=== PATIENT | male | born 1940 | race Caucasian/White ===

== ENCOUNTER 2019-02-28 04:32 | Inpatient (IN) ==
[2019-02-28] MEDS ORDERED: HEPARIN DRIP 25,000 UNITS/500 ML PREMIX IV SCH ×2 (06:30→13:00)
[2019-02-28 07:02] LABS: ABG Base Excess 2.6 MMOL/L (-2.5-2.5); ABG HCO3 26.5 MMOL/L (20-26); ABG Oxygen Saturation 88.5 % (95-100); ABG PCO2 38.9 MM HG (35-48); ABG PH 7.444 (7.35-7.45); ABG PO2 51.3 MM HG (80-95); ABG TCO2 22.5 MMOL/L (23-27); Allen Test Positive
[2019-02-28 07:03] LABS: Basophils # 0.1 10*3/uL (0.0-0.2); Basophils % 0.6 % (0.0-0.8); Eosinophils # 0.2 10*3/uL (0.0-0.87); Eosinophils % 1.5 % (0.00-10.9); Hematocrit 45.4 VOL% (42.0-52.0); Hemoglobin 15.4 GM/DL (14.0-18.0); Immature Granulocytes % 0.7 %; Immature Granulocytes Absolute 0.07 #; Lymphocytes # 1.8 10*3/uL (1.4-4.0); Lymphocytes % 17.4 % (21.2-54.2); Mean Corpuscular HGB Conc 33.9 GM/DL (32-36); Mean Corpuscular Volume 85.5 FL (87-102); Mean Platelet Volume 10.7 FL (9.6-12.0); Neutrophils % 70.8 % (38.7-73.9); Platelet Count 164 T/CUMM (130-400); Red Blood Count 5.31 MC/CUMM (3.8-5.5); White Blood Count 10.3 T/CUMM (4-12)
[2019-02-28 07:09] LABS: INR 1.1; PT Patient Result 11.6 SECS (9.6-12.2)
[2019-02-28 07:16] LABS: Partial Thromboplastin Time 43.8 SECS (20.8-36.0)
[2019-02-28 07:22] LABS: Blood Urea Nitrogen 16 MG/DL (7-18); Estimated Glom Filtration Rate 47 ML/MIN; Glucose 118 MG/DL (74-106); Osmolality,Calculated 282.3 MOS/KG (273-304)
[2019-02-28 07:23] LABS: Troponin I 0.172 NG/ML (0.00-0.045)
[2019-02-28] MEDS ORDERED: ONDANSETRON 4 MG/2 ML VIAL IV PRN (08:53)
[2019-02-28] MEDS ORDERED: MORPHINE 4 MG/1 ML VIAL IV PRN (08:53)
[2019-02-28] MEDS ORDERED: PROMETHAZINE 25 MG/1 ML VIAL IM PRN (08:53)
[2019-02-28] MEDS: SODIUM CHLORIDE 0.9% 1,000 ML IV SCH (09:45)
[2019-02-28] MEDS: PANTOPRAZOLE 40 MG TABLET PO SCH (09:46)
[2019-02-28] MEDS ORDERED: DIAZEPAM 5 MG TABLET PO ONE (11:23)
[2019-02-28] MEDS: MECLIZINE 25 MG TABLET PO SCH ×2 (11:34→18:26)
[2019-02-28] MEDS ORDERED: MIDAZOLAM 2 MG/2 ML VIAL ONE (11:56)
[2019-02-28] MEDS ORDERED: HYDROmorphone 2 MG/1 ML VIAL ONE (11:56)
[2019-02-28] MEDS ORDERED: HEPARIN/NACL 0.9% 2 UNITS/ML 500 ML IV ONE (11:58)
[2019-02-28] MEDS ORDERED: LIDOCAINE 1% 20 ML VIAL ONE (11:58)
[2019-02-28] MEDS ORDERED: SODIUM CHLORIDE 0.9% 1,000 ML IV SCH ×2 (12:00)
[2019-02-28] MEDS ORDERED: ALTEPLASE 4 MG in SODIUM CHLORIDE 0.9% 80 ML IV SCH (12:00)
[2019-02-28 13:46] LABS: PT Patient Result 11.3 SECS (9.6-12.2); Partial Thromboplastin Time 34.4 SECS (20.8-36.0)
[2019-02-28] MEDS ORDERED: HALOPERIDOL 5 MG/ML AMP IV PRN (14:25)
[2019-02-28 15:23] LABS: Apearance,Urine CLEAR (Clear); Bilirubin,Urine Negative (Negative); Blood, Urine Moderate mg/dL (Negative); Glucose,Urine (UA) Negative (Negative); Ketones,Urine 5 mg/dL (Negative); Nitrite,Urine Negative (Negative); Protein,Urine 100 MG/DL; RBC,Urine 13 /HPF (0-4); Squamous Epithelial Cell,Urine Occasional /HPF (0-10); Urine Color Yellow (Yellow); Urine Specific Gravity 1.034 (1.001-1.035); WBC,Urine 2 /HPF (0-6)
[2019-02-28] MEDS ORDERED: ZIPRASIDONE 20 MG/1 ML VIAL IM PRN (16:20)
[2019-02-28 16:22] LABS: INR 1.1; PT Patient Result 11.6 SECS (9.6-12.2)
[2019-02-28] MEDS: APIXABAN 5 MG TABLET PO SCH (20:34)
[2019-02-28] MEDS: ROSUVASTATIN 20 MG TABLET PO SCH (20:34)
[2019-02-28] MEDS: traZODone 50 MG TABLET PO SCH (20:34)
[2019-02-28] MEDS: busPIRone 15 MG TABLET PO SCH (20:34)
[2019-02-28] MEDS: carvediloL 6.25 MG TABLET PO SCH (20:34)
[2019-03-01] MEDS: MECLIZINE 25 MG TABLET PO SCH ×4 (00:21→17:52)
[2019-03-01 04:23] LABS: Basophils # 0.1 10*3/uL (0.0-0.2); Basophils % 0.6 % (0.0-0.8); Eosinophils # 0.2 10*3/uL (0.0-0.87); Eosinophils % 2.6 % (0.00-10.9); Hematocrit 41.7 VOL% (42.0-52.0); Hemoglobin 13.9 GM/DL (14.0-18.0); Immature Granulocytes % 0.6 %; Immature Granulocytes Absolute 0.05 #; Lymphocytes # 1.9 10*3/uL (1.4-4.0); Lymphocytes % 23.4 % (21.2-54.2); Mean Corpuscular HGB Conc 33.3 GM/DL (32-36); Mean Corpuscular Volume 87.8 FL (87-102); Mean Platelet Volume 10.6 FL (9.6-12.0); Monocytes % 11.1 % (1.7-12.7); Neutrophils % 61.7 % (38.7-73.9); Platelet Count 139 T/CUMM (130-400); Red Blood Count 4.75 MC/CUMM (3.8-5.5); Red Cell Distribution Width 13.2 % (9.3-17.3); White Blood Count 8.1 T/CUMM (4-12)
[2019-03-01 04:35] LABS: INR 1.2; PT Patient Result 12.7 SECS (9.6-12.2)
[2019-03-01 04:40] LABS: ABG Base Excess 1.2 MMOL/L (-2.5-2.5); ABG HCO3 27.1 MMOL/L (20-26); ABG Oxygen Saturation 98.5 % (95-100); ABG PCO2 47.9 MM HG (35-48); ABG PH 7.371 (7.35-7.45); ABG PO2 121.9 MM HG (80-95); ABG TCO2 28.6 MMOL/L (23-27); Pt O2 Delivery Device Other
[2019-03-01 04:54] LABS: Osmolality,Calculated 281.3 MOS/KG (273-304)
[2019-03-01 04:56] LABS: Troponin I 0.712 NG/ML (0.00-0.045)
[2019-03-01] MEDS: SODIUM CHLORIDE 0.9% 1,000 ML IV SCH ×2 (05:21→18:01)
[2019-03-01] MEDS: traZODone 50 MG TABLET PO SCH ×2 (08:38→21:14)
[2019-03-01] MEDS: APIXABAN 5 MG TABLET PO SCH ×2 (08:39→21:14)
[2019-03-01] MEDS: carvediloL 6.25 MG TABLET PO SCH ×2 (08:39→21:14)
[2019-03-01] MEDS: PANTOPRAZOLE 40 MG TABLET PO SCH (08:39)
[2019-03-01] MEDS: busPIRone 15 MG TABLET PO SCH ×2 (08:39→21:13)
[2019-03-01] MEDS: ALBUTEROL 2.5 MG/3 ML NEB RESP TX PRN (11:57)
[2019-03-01] MEDS: POTASSIUM CHLORIDE 20 MEQ TABLET PO SCH (13:03)
[2019-03-01] MEDS: ASCORBIC ACID 500 MG TABLET PO SCH ×2 (13:03→21:14)
[2019-03-01] MEDS: ROSUVASTATIN 20 MG TABLET PO SCH (21:14)
[2019-03-02] MEDS: MECLIZINE 25 MG TABLET PO SCH ×4 (01:03→19:20)
[2019-03-02 04:35] LABS: Basophils % 0.6 % (0.0-0.8); Eosinophils # 0.3 10*3/uL (0.0-0.87); Eosinophils % 4.3 % (0.00-10.9); Hematocrit 40.3 VOL% (42.0-52.0); Hemoglobin 13.3 GM/DL (14.0-18.0); Immature Granulocytes % 0.6 %; Immature Granulocytes Absolute 0.04 #; Lymphocytes # 1.6 10*3/uL (1.4-4.0); Lymphocytes % 23.4 % (21.2-54.2); Mean Corpuscular Volume 88.2 FL (87-102); Mean Platelet Volume 10.8 FL (9.6-12.0); Monocytes % 9.9 % (1.7-12.7); Neutrophils % 61.2 % (38.7-73.9); Platelet Count 138 T/CUMM (130-400); Red Blood Count 4.57 MC/CUMM (3.8-5.5); Red Cell Distribution Width 13.3 % (9.3-17.3)
[2019-03-02 04:46] LABS: Osmolality,Calculated 286.8 MOS/KG (273-304)
[2019-03-02] MEDS: ASCORBIC ACID 500 MG TABLET PO SCH ×2 (08:20→20:12)
[2019-03-02] MEDS: PANTOPRAZOLE 40 MG TABLET PO SCH (08:20)
[2019-03-02] MEDS: APIXABAN 5 MG TABLET PO SCH ×2 (08:20→20:14)
[2019-03-02] MEDS: traZODone 50 MG TABLET PO SCH ×2 (08:21→20:12)
[2019-03-02] MEDS: busPIRone 15 MG TABLET PO SCH ×2 (08:21→20:12)
[2019-03-02] MEDS: carvediloL 6.25 MG TABLET PO SCH ×2 (08:21→20:12)
[2019-03-02] MEDS: POTASSIUM CHLORIDE 20 MEQ TABLET PO SCH (08:21)
[2019-03-02] MEDS: ALBUTEROL 2.5 MG/3 ML NEB RESP TX PRN (08:42)
[2019-03-02] MEDS: SODIUM CHLORIDE 0.9% 1,000 ML IV SCH (10:33)
[2019-03-02] MEDS: ROSUVASTATIN 20 MG TABLET PO SCH (20:12)
[2019-03-03] MEDS: MECLIZINE 25 MG TABLET PO SCH ×4 (00:39→18:17)
[2019-03-03] MEDS: ALBUTEROL 2.5 MG/3 ML NEB RESP TX PRN (01:02)
[2019-03-03] MEDS: SODIUM CHLORIDE 0.9% 1,000 ML IV SCH ×2 (03:18→20:48)
[2019-03-03 05:55] LABS: Basophils # 0.1 10*3/uL (0.0-0.2); Basophils % 0.7 % (0.0-0.8); Eosinophils # 0.2 10*3/uL (0.0-0.87); Eosinophils % 3.2 % (0.00-10.9); Hematocrit 40.6 VOL% (42.0-52.0); Hemoglobin 13.4 GM/DL (14.0-18.0); Immature Granulocytes % 0.4 %; Immature Granulocytes Absolute 0.03 #; Lymphocytes # 1.5 10*3/uL (1.4-4.0); Lymphocytes % 20.6 % (21.2-54.2); Mean Corpuscular Volume 87.3 FL (87-102); Mean Platelet Volume 10.5 FL (9.6-12.0); Monocytes % 8.8 % (1.7-12.7); Neutrophils % 66.3 % (38.7-73.9); Platelet Count 149 T/CUMM (130-400); Red Blood Count 4.65 MC/CUMM (3.8-5.5); Red Cell Distribution Width 13.1 % (9.3-17.3); White Blood Count 7.2 T/CUMM (4-12)
[2019-03-03 06:11] LABS: Calcium 8.2 MG/DL (8.5-10.1); Osmolality,Calculated 285.8 MOS/KG (273-304)
[2019-03-03] MEDS: traZODone 50 MG TABLET PO SCH ×2 (08:48→20:49)
[2019-03-03] MEDS: busPIRone 15 MG TABLET PO SCH ×2 (08:48→20:50)
[2019-03-03] MEDS: carvediloL 6.25 MG TABLET PO SCH ×2 (08:49→20:50)
[2019-03-03] MEDS: POTASSIUM CHLORIDE 20 MEQ TABLET PO SCH (08:49)
[2019-03-03] MEDS: PANTOPRAZOLE 40 MG TABLET PO SCH (08:49)
[2019-03-03] MEDS: APIXABAN 5 MG TABLET PO SCH ×2 (08:49→20:49)
[2019-03-03] MEDS: ASCORBIC ACID 500 MG TABLET PO SCH ×2 (08:49→20:50)
[2019-03-03] MEDS: ROSUVASTATIN 20 MG TABLET PO SCH (20:50)
[2019-03-04] MEDS: MECLIZINE 25 MG TABLET PO SCH ×3 (01:24→18:11)
[2019-03-04 06:02] LABS: Calcium 8.4 MG/DL (8.5-10.1); Osmolality,Calculated 288.7 MOS/KG (273-304)
[2019-03-04] MEDS: ASPIRIN EC 81 MG TABLET PO SCH (08:53)
[2019-03-04] MEDS: APIXABAN 5 MG TABLET PO SCH ×2 (08:53→21:46)
[2019-03-04] MEDS: ASCORBIC ACID 500 MG TABLET PO SCH ×2 (08:53→21:46)
[2019-03-04] MEDS: busPIRone 15 MG TABLET PO SCH ×2 (08:53→21:47)
[2019-03-04] MEDS: PANTOPRAZOLE 40 MG TABLET PO SCH (08:54)
[2019-03-04] MEDS: POTASSIUM CHLORIDE 20 MEQ TABLET PO SCH (08:54)
[2019-03-04] MEDS: traZODone 50 MG TABLET PO SCH ×2 (08:54→21:46)
[2019-03-04] MEDS: carvediloL 6.25 MG TABLET PO SCH ×2 (08:54→21:46)
[2019-03-04] MEDS ORDERED: ALBUTEROL/IPRATROPIUM 3 ML NEB RESP TX PRN (09:30)
[2019-03-04] MEDS ORDERED: ALBUTEROL/IPRATROPIUM 3 ML NEB RESP TX ONE (09:30)
[2019-03-04] MEDS: SODIUM CHLORIDE 0.9% 1,000 ML IV SCH (18:33)
[2019-03-04] MEDS: ROSUVASTATIN 20 MG TABLET PO SCH (21:46)
[2019-03-05] MEDS: MECLIZINE 25 MG TABLET PO SCH ×4 (00:36→12:32)
[2019-03-05] MEDS: ACETAMINOPHEN 325 MG TABLET PO PRN ×2 (00:39→16:25)
[2019-03-05] MEDS: SODIUM CHLORIDE 0.9% 1,000 ML IV SCH (09:13)
[2019-03-05] MEDS: busPIRone 15 MG TABLET PO SCH (09:13)
[2019-03-05] MEDS: ASPIRIN EC 81 MG TABLET PO SCH (09:13)
[2019-03-05] MEDS: carvediloL 6.25 MG TABLET PO SCH (09:13)
[2019-03-05] MEDS: APIXABAN 5 MG TABLET PO SCH (09:14)
[2019-03-05] MEDS: ASCORBIC ACID 500 MG TABLET PO SCH (09:14)
[2019-03-05] MEDS: POTASSIUM CHLORIDE 20 MEQ TABLET PO SCH (09:14)
[2019-03-05] MEDS: traZODone 50 MG TABLET PO SCH (09:14)
[2019-03-05] MEDS: PANTOPRAZOLE 40 MG TABLET PO SCH (09:14)
[2019-03-05 12:00] VITALS: BP 133/71
[2019-03-10] MEDS ORDERED: APIXABAN 5 MG TABLET PO SCH (21:00)
[2019-03-11 18:34] LABS: F5DNA Reviewed By SEE COMMENTS; Factor V Leiden (R506Q) Mutati Negative (Negative); PTNT Reviewed By SEE COMMENTS
== END 2019-03-05 16:39 | DRG 175 ==
LOC: SUATTDRO 06:16 → N.CC 06:16 → N.5E 03-02 14:09
PROVIDERS: ADMIT Internal Medicine; ATTEND Internal Medicine